=== PATIENT | female | born 1960 | race Caucasian/White ===

== ENCOUNTER 2016-07-18 08:00 | Day surgery (SDC) | payer BC ==
[~2016-07-18] VITALS: Ht 172.7 cm; Wt 59.2 kg
[~2016-07-18 08:00] MED LIST: CITA-104 PO; CLON2TAB3 PO; ESTR1TAB15 PO
[2016-07-18 08:37] VITALS: Ht 172.7 cm; Wt 59.2 kg
[2016-07-18] MEDS ORDERED: maxalt PO (08:49)
[2016-07-18] MEDS ORDERED: klonopin PO (08:49)
[2016-07-18] MEDS ORDERED: celexa PO (08:49)
[2016-07-18] MEDS ORDERED: PROPOFOL 20 ML ONE (09:03)
[2016-07-18] MEDS ORDERED: MIDAZOLAM 1 MG/ML 2 ML INJ ONE (09:04)
[2016-07-18] MEDS ORDERED: FENTAnyl 50 MCG/ML VIAL ONE (09:04)
[2016-07-18 09:25] VITALS: BP 113/72; PULSE 50; RESP 22
[2016-07-18 10:06] VITALS: BP 86/58; PULSE 59; RESP 18
--- NOTE | 2016-07-18 11:28 | GILP ---
DATE OF PROCEDURE: 07/18/2016 NAME OF PROCEDURE: Colonoscopy. SURGEON: Brett Barahona MD PREOPERATIVE DIAGNOSIS: Screening colonoscopy. POSTOPERATIVE DIAGNOSES: 1. Colonoscopy all the way to the cecum. 2. Melanosis coli. 3. Internal hemorrhoids. 4. No colon neoplasm was identified. INDICATION FOR THE PROCEDURE: Ms. Sydni Lim is a 56-year-old female patient who was scheduled for screening colonoscopy. The procedure and possible complications were well explained to the patient. She understood and con sented to the procedure. DESCRIPTION OF PROCEDURE: Under the influence of anesthesia, the colonoscope was carefully introduc ed in the rectum, and under direct vision, it was advanced all the way to the cecum. FINDINGS: The patient was noted to have melanosis coli. She also had small internal hemorrhoids. No colon neoplasm was identified. She tolerated the procedure very well, and there was no complication from the procedure. At the end of the procedure, she was awake with stable vital signs, and she was discharged home to the care of her family. IMPRESSION: 1. Colonoscopy all the way to the cecum. 2. Melanosis coli. 3. Small internal hemorrhoids. 4. No colon neoplasm was identified. PLAN: Next screening colonoscopy in 10 years. Dictated By: BRETT NEGRON/PATRIC Conf#: [id number] DID#: [id number]
== END 2016-07-18 16:37 | disposition home or self-care (01) ==
LOC: GIL 08:00
PROVIDERS: ATTEND Internal Medicine Gastroenterology
DX: Z12.11 Encounter for screening for malignant neoplasm of colon (principal); K63.89 Other specified diseases of intestine; K64.8 Other hemorrhoids; F41.9 Anxiety disorder, unspecified
CPT/HCPCS: 45378; J2250; J3010